=== PATIENT | male | born 2005 | race Two or more races ===

== ENCOUNTER 2025-06-06 16:41 | Emergency (ER) | payer BC, OTHER ==
[~2025-06-06] VITALS: Ht 182.9 cm; Wt 79.6 kg
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
[2025-06-06] MEDS: IBUPROFEN 800 MG TAB PO ONE (19:01)
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
[2025-06-06] MEDS ORDERED: IBUP-1456 PO (19:46)
[2025-06-06] MEDS ORDERED: METH-1181 PO (19:46)
[2025-06-06 20:00] VITALS: BP 128/76; TEMP 97.9
[2025-06-06 20:01] VITALS: PULSE 55; RESP 17; O2SAT 99
== END 2025-06-06 20:04 | disposition home or self-care (01) ==
LOC: ER 16:41
DX: M54.50 Low back pain, unspecified (principal); M25.511 Pain in right shoulder; R07.89 Other chest pain; R06.02 Shortness of breath; V49.9XXA Car occupant (driver) (passenger) injured in unspecified traffic accident, initial encounter; Y93.I9 Activity, other involving external motion; Y92.488 Other paved roadways as the place of occurrence of the external cause; Y99.8 Other external cause status
CPT/HCPCS: 72100; 73030

== ENCOUNTER 2025-10-04 02:10 | Emergency (ER) | payer BC, OTHER ==
[~2025-10-04] VITALS: Ht 182.9 cm; Wt 79.5 kg
[2025-10-04 02:14] VITALS: BP 118/80; PULSE 75; RESP 20; TEMP 97.7; O2SAT 99
[2025-10-04] MEDS ORDERED: HYDROcodone-ACET 5/325MG TAB PO ONE (02:30)
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
--- NOTE | 2025-10-06 09:15 | DVH ---
INDICATION: HEAD INJURY COMPARISON: None TECHNIQUE: Utilizing a multislice CT scanner, a CT scan of the brain was performed without intravenous contrast. Coronal and sagittal reformatted images. All CT scans at this facility use dose modulation, iterative reconstruction, and/or weight based dosing when appropriate to reduce radiation dose to as low as reasonably achievable. FINDINGS: There is no acute infarct, intracranial hemorrhage, or mass effect. There is no hydrocephalus or significant midline shift. No acute, depressed calvarial fractures. No large scalp hematomas. IMPRESSION: 1. No acute intracranial process. DENT SERVICES MANAGER JOEY
== END 2025-10-04 03:28 | disposition left against medical advice (07) ==
LOC: ER 02:10 → EDUNIT# 02:10 → EDBD 02:10 → ER 03:28 → OVERFLOW 23:00 → UNDOADMIN 23:00
DX: S01.112A Laceration without foreign body of left eyelid and periocular area, initial encounter (principal); Y08.89XA Assault by other specified means, initial encounter; Y93.61 Activity, american tackle football; Y92.89 Other specified places as the place of occurrence of the external cause; Y99.9 Unspecified external cause status
CPT/HCPCS: 70450